=== PATIENT | male | born 1960 | race African-American/Black ===

== ENCOUNTER 2019-02-09 11:46 | Emergency (ER) | payer OTHER ==
[~2019-02-09] VITALS: Ht 177.8 cm; Wt 86.6 kg
[2019-02-09 11:50] VITALS: BP 135/75
--- NOTE | 2019-02-09 12:02 | NUR ---
C/O L LOWER LEG PAIN STARTING YESTERDAY S/P HITTING CALF WITH A TABLE LEG WHILE MOVING IT. +CMS. ICE PACK APPLIED TO SITE. SWELLING NOTED. NO DISCOLORATION. DENIES ANKLE PAIN. VSS. [id number]. BED IS DOWN, LOCKED, BED RAIL X 1, ERMD TO SEE PT. HX: NONE RX: NONE
--- NOTE | 2019-02-09 12:57 | NUR ---
DR HUTCHINS AT BEDSIDE
[2019-02-09] MEDS ORDERED: IBUPROFEN 400 MG TAB PO ONE (13:05)
--- NOTE | 2019-02-09 13:10 | NUR ---
MOTRIN PO ADMINISTERED
[2019-02-09 13:54] VITALS: BP 135/75
== END 2019-02-09 13:55 | disposition home or self-care (01) ==
LOC: MED 11:46
DX: S80.12XA Contusion of left lower leg, initial encounter (principal); W22.8XXA Striking against or struck by other objects, initial encounter; Y93.89 Activity, other specified; Y92.89 Other specified places as the place of occurrence of the external cause; Y99.8 Other external cause status
CPT/HCPCS: 73590; 99283; Q0092